=== PATIENT | female | born 1975 | race Caucasian/White ===

== ENCOUNTER 2018-08-26 23:30 | Emergency (ER) | payer MEDICAID, OTHER ==
[~2018-08-26] VITALS: Ht 165.1 cm; Wt 100.0 kg
[~2018-08-26 23:30] MED LIST: NO HOME MEDICATIONS
[2018-08-27] MEDS ORDERED: METHOCARBAMOL 750 MG TABLET PO ONE (02:30)
[2018-08-27] MEDS ORDERED: KETOROLAC TROMETHAMINE 60 MG/2 ML VIAL IM ONE (02:30)
[2018-08-27 04:37] VITALS: BP 125/71
== END 2018-08-27 04:45 | disposition home or self-care (01) ==
LOC: EMS 23:30
DX: S13.4XXA Sprain of ligaments of cervical spine, initial encounter (principal); S29.012A Strain of muscle and tendon of back wall of thorax, initial encounter; S63.617A Unspecified sprain of left little finger, initial encounter; S16.1XXA Strain of muscle, fascia and tendon at neck level, initial encounter; V47.5XXA Car driver injured in collision with fixed or stationary object in traffic accident, initial encounter; Y93.89 Activity, other specified; Y92.832 Beach as the place of occurrence of the external cause; Y99.8 Other external cause status
CPT/HCPCS: 29130; 71045; 72040; 72070; 73140; 81025; 96372; 99284; J1885

== ENCOUNTER 2018-11-03 19:49 | Emergency (ER) | payer OTHER ==
[~2018-11-03] VITALS: Ht 165.1 cm; Wt 95.5 kg
[2018-11-03 20:10] VITALS: BP 157/98
[2018-11-03 20:30] LABS: GLUCOSE,POINT OF CARE 332 MG/DL (70-110)
== END 2018-11-03 20:51 | disposition left against medical advice (07) ==
LOC: EMS 19:50
DX: R51 Headache (principal); Z53.21 Procedure and treatment not carried out due to patient leaving prior to being seen by health care provider

== ENCOUNTER 2018-11-04 07:01 | Emergency (ER) | payer OTHER ==
[~2018-11-04] VITALS: Ht 165.1 cm; Wt 95.5 kg
[2018-11-04 07:39] LABS: GLUCOSE,POINT OF CARE 287 MG/DL (70-110)
[2018-11-04] MEDS ORDERED: ACETAMINOPHEN 500 MG TABLET PO ONE (08:45)
[2018-11-04] MEDS ORDERED: KETOROLAC TROMETHAMINE 60 MG/2 ML VIAL IM ONE (09:30)
[2018-11-04 10:00] VITALS: BP 129/92
== END 2018-11-04 10:18 | disposition home or self-care (01) ==
LOC: EMS 07:01
DX: S00.03XA Contusion of scalp, initial encounter (principal); S00.432A Contusion of left ear, initial encounter; I10 Essential (primary) hypertension; E11.9 Type 2 diabetes mellitus without complications; Y04.0XXA Assault by unarmed brawl or fight, initial encounter; Y93.89 Activity, other specified; Y92.89 Other specified places as the place of occurrence of the external cause; Y99.8 Other external cause status
CPT/HCPCS: 70450; 81025; 82962; 96372; 99284; J1885